=== PATIENT | male | born 1960 | race Caucasian/White ===

== ENCOUNTER → 2019-01-29 | Outpatient (CLI) | payer MEDICARE, OTHER ==
[~2019-01-29] MED LIST: REGADENOSON 0.4 MG/5 ML SYRINGE IV ONE
--- NOTE | 2019-01-29 13:03 | EST ---
EXERCISE STRESS AGE: 58 SEX: M HT: 6'0" WT: 220 PROTOCOL: Lexiscan Cardiolite Study HEART RATE REST: 68 BLOOD PRESSURE REST: 139/89 MAXIMUM HEART RATE ACHIEVED: 96 MAXIMUM BLOOD PRESSURE: 139/89 85% MPHR: 136 100% MPHR: 160 INDICATIONS: Chest pain. CLINICAL INFORMATION: Baseline rhythm sinus mechanism, rate of 68, normal axis and intervals, normal electrocardiogram. Baseline blood pressure 139/89 mmHg. Patient received injection of Lexiscan. Electrocardiograph monitoring revealed rare PVCs, there was no evidence of diagnostic ischemic ST deviation. Cardiolite was injected at the protocol.. CONCLUSION: 1. Nondiagnostic electrocardiograph stress testing with rare PVCs. 2. Nuclear images will be reported separately. MMODL / IJN: [id number] /
--- NOTE | 2019-01-29 15:05 | NM ---
"EXAMINATION TYPE: NM stress lexiscan cardiolite DATE OF EXAM: 01/29/2019 COMPARISON: NONE HISTORY: Chest pain, cardiovascular disease TECHNIQUE: After the intravenous administration of 9.3 mCi Tc 99m Sestamibi - Cardiolite resting SPE CT images acquired 45 minutes post injection. The patient received 0.4mg Lexiscan, 24.6 mCi Tc 99m Sestamibi - Stress images obtained [address] injection FINDINGS: Review of stress and rest SPECT images demonstrates mild decrease uptake of the radiopharmaceutical a t the cardiac apex on stress as compared to rest images. Gated analysis shows normal wall motion wit h an estimated left ventricular ejection fraction of 57 %. 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 This message alert has been sent to Blanca manjarrez MD via the preferences provided by the clinician for the receipt of Radiology Critical Findings. [facility] ID [id number]."
== END | disposition home or self-care (01) ==
LOC: RADNMMAIN 07:40
PROVIDERS: ATTEND Internal Medicine
DX: I25.9 Chronic ischemic heart disease, unspecified (principal)
CPT/HCPCS: 93017; 78452; A9500; J2785

== ENCOUNTER → 2019-01-31 | Outpatient (CLI) | payer MEDICARE, OTHER ==
[2019-01-31 15:11] LABS: HCT 44.9 % (39.0-53.0); HGB 16.3 gm/dL (13.0-17.5); MCH 34.5 pg (25.0-35.0); MCHC 36.3 g/dL (31.0-37.0); MCV 94.9 fL (80.0-100.0); Mean Platelet Volume 7.3; Platelet Count 250 k/uL (150-450); RBC 4.73 m/uL (4.30-5.90); RDW 14.7 % (11.5-15.5)
[2019-01-31 21:41] LABS: African American GFR (CKD) 94.4 (60.0-200.0); Anion Gap 11.6 mmol/L (4.00-12.00); Carbon Dioxide 24.4 mmol/L (21.6-31.8); Potassium 4.3 mmol/L (3.5-5.5)
== END | disposition home or self-care (01) ==
LOC: LABWHC1 14:16
PROVIDERS: ATTEND Internal Medicine Interventional Cardiology
DX: Z01.812 Encounter for preprocedural laboratory examination (principal); R94.39 Abnormal result of other cardiovascular function study
CPT/HCPCS: 36415; 80051; 82565; 84520; 85027

== ENCOUNTER 2019-05-30 20:25 | Emergency (ER) | payer MEDICARE, OTHER ==
[2019-05-30] MEDS ORDERED: NITROGLYCERIN SL TABS 0.4 MG TAB SUBLINGUAL STA (20:49)
--- NOTE | 2019-05-30 20:52 | ED ---
Chest Pain HPI - General Chief Complaint: Chest Pain Stated Complaint: chest pain Time Seen by Provider: 05/30/19 20:39 Source: patient Mode of arrival: ambulatory Limitations: no limitations - History of Present Illness Initial Comments: This 58-year-old male with no prior history of heart disease who does have a history of cervical spine and back disease from previous injuries he states he does have right kidney cancer who presents with complaints of chest pain he states she's had chest pain and really for the last year and a half minute over last week more so in an since last studies had more so subtle in location states he feels like is a pounding in his chest he states he took a muscle relaxer did seem to help and brought down to a 6 or 7/10 he has had shortness of breath with it. No fevers chills no cough or phlegm production no other modifying factors no palpitations MD Complaint: chest pain - Related Data Previous Rx's Medication Instructions Recorded Cyclobenzaprine [Flexeril] 10 mg PO TID #14 tab 05/30/19 Ibuprofen 800 mg PO Q6HR PRN #20 tablet 05/30/19 Nitroglycerin Sl Tabs [Nitrostat] 0.4 mg SUBLINGUAL Q5M PRN #25 tab 05/30/19 Allergies Allergy/AdvReac Type Severity Reaction Status Date / Time No Known Allergies Allergy Verified 05/30/19 20:34 Review of Systems ROS Statement: Those systems with pertinent positive or pertinent negative responses have been documented in the HPI. ROS Other: All systems not noted in ROS Statement are negative. EKG Findings - EKG Results: EKG: interpreted by [place], sinus rhythm (Sinus rhythm rate of 84 KS interval 162 QRS 102 QT since QTC 364/4:30 a single PVC noted some artifact present no acute ST-T wave changes seen) Past Medical History Past Medical History: Coronary Artery Disease (CAD), Cancer, Hypertension Additional Past Medical History / Comment(s): kidney cancer,neck/back pains History of Any Multi-Drug Resistant Organisms: None Reported Past Surgical History: Orthopedic Surgery Additional Past Surgical History / Comment(s): ft femur. lt knee Past Psychological History: No Psychological Hx Reported Smoking Status: Current every day smoker Past Alcohol Use History: None Reported Past Drug Use History: None Reported General Exam - General Exam Comments Initial Comments: This is a well-developed well-nourished awake alert oriented 3 male Limitations: no limitations General appearance: alert, anxious Head exam: Present: atraumatic, normocephalic, normal inspection Eye exam: Present: normal appearance, PERRL, EOMI. Absent: scleral icterus, conjunctival injection, periorbital swelling ENT exam: Present: normal exam, mucous membranes moist Neck exam: Present: normal inspection, full ROM, other (Genitourinary bruits). Absent: tenderness, meningismus, lymphadenopathy Respiratory exam: Present: normal lung sounds bilaterally. Absent: respiratory distress, wheezes, rales, rhonchi, stridor, chest wall tenderness Cardiovascular Exam: Present: regular rate, normal rhythm, normal heart sounds. Absent: systolic murmur, diastolic murmur, rubs, gallop, clicks GI/Abdominal exam: Present: soft, normal bowel sounds. Absent: distended, tenderness, guarding, rebound, rigid Extremities exam: Present: normal inspection, full ROM, normal capillary refill. Absent: tenderness, pedal edema, joint swelling, calf tenderness Back exam: Present: normal inspection Neurological exam: Present: alert, oriented X3, CN II-XII intact Psychiatric exam: Present: normal affect, normal mood Skin exam: Present: warm, dry, intact, normal color. Absent: rash Course Vital Signs 05/30/19 05/30/19 05/30/19 20:31 20:51 21:00 Temperature 98.1 F Pulse Rate 83 84 85 Respiratory 20 Rate Blood Pressure 138/79 147/84 O2 Sat by Pulse 99 95 95 Oximetry 05/30/19 05/30/19 05/30/19 21:30 22:00 22:30 Temperature Pulse Rate 81 73 Respiratory 18 17 Rate Blood Pressure 130/101 124/77 116/71 O2 Sat by Pulse 95 94 L Oximetry - Reevaluation(s) Reevaluation #1: 05/30/19 23:20 Did seem to get relieved some of the pain after nitroglycerin. Procedures - Smoking Cessation Time Spent Discussing Smoking Cessation w/Patient (Minutes): 3 Patient Acknowledges Need for Cessation: Yes Chest Pain MDM - MDM X-ray was negative for acute findings I did discuss the findings with the patient did offer admission and he is refusing at this time. Is unclear whether the pain is musculoskeletal versus cardiac in nature he is a smoker we did discuss smoking cessation he has no nitroglycerin at home he'll be given a prescription for nitroglycerin he did also recommend follow-up with a spinal surgeon as he does have neck pain and evidence of radicular findings with pain going down his arms and at times even his low back going down was toe and the right. He was offered admission he time he comes back he does not want to be admitted this time he's agreed to take the responsibility Disposition Clinical Impression: Atypical chest pain Disposition: HOME SELF-CARE Condition: Good Instructions (If sedation given, give patient instructions): Chest Pain (ED) Additional Instructions: Follow-up with her doctor and with a spine surgeon. Your prescriptions have been sent to your preferred [facility] pharmacy Prescriptions: Cyclobenzaprine [Flexeril] 10 mg PO TID #14 tab Ibuprofen 800 mg PO Q6HR PRN #20 tablet PRN Reason: Pain Nitroglycerin Sl Tabs [Nitrostat] 0.4 mg SUBLINGUAL Q5M PRN #25 tab PRN Reason: Chest Pain Is patient prescribed a controlled substance at d/c from ED?: No Referrals: Blanca Sosa MD [Primary Care Provider] - 1-2 days
[2019-05-30 21:22] LABS: Basophils # (A) 0.1 k/uL (0-0.2); Basophils % (A) 1 %; Eosinophils # (A) 0.1 k/uL (0-0.7); Eosinophils % (A) 1 %; HCT 46.1 % (39.0-53.0); HGB 15.6 gm/dL (13.0-17.5); Lymphocytes # (A) 2.2 k/uL (1.0-4.8); Lymphocytes % (A) 26 %; MCHC 33.9 g/dL (31.0-37.0); MCV 97.5 fL (80.0-100.0); Mean Platelet Volume 8.4; Monocytes # (A) 0.6 k/uL (0-1.0); Monocytes % (A) 7 %; Neutrophils # (A) 5.5 k/uL (1.3-7.7); Neutrophils % (A) 64 %; Platelet Count 217 k/uL (150-450); RBC 4.73 m/uL (4.30-5.90); RDW 12.5 % (11.5-15.5); WBC 8.7 k/uL (3.8-10.6)
--- NOTE | 2019-05-30 21:27 | XR ---
EXAMINATION TYPE: XR chest 2V DATE OF EXAM: 05/30/2019 COMPARISON: 03/11/2015 HISTORY: Short of breath and weakness TECHNIQUE: 2 views FINDINGS: Heart and mediastinum are normal. Lungs are clear. Diaphragm is normal. Bony thorax appears intact. There are chest leads. IMPRESSION: Normal chest. No change.
[2019-05-30 21:31] LABS: ALT 22 U/L (4-49); AST 33 U/L (17-59); African American GFR (CKD) >90 (>60 ml/min/1.73 sqM); Albumin 4.6 g/dL (3.5-5.0); Alkaline Phosphatase 112 U/L (38-126); Anion Gap 12 mmol/L; Blood Urea Nitrogen 19 mg/dL (9-20); Calcium 9.4 mg/dL (8.4-10.2); Carbon Dioxide 22 mmol/L (22-30); Chloride 104 mmol/L (98-107); Creatine Kinase 190 U/L (55-170); Glucose 112 mg/dL (74-99); Magnesium 1.8 mg/dL (1.6-2.3); Non-African American GFR(CKD) 87 (>60 ml/min/1.73 sqM); Potassium 3.9 mmol/L (3.5-5.1); Sodium 138 mmol/L (137-145); Total Bilirubin 0.8 mg/dL (0.2-1.3); Total Protein 7.5 g/dL (6.3-8.2)
[2019-05-30 21:35] LABS: D-Dimer 0.22 mg/L FEU (<0.60); INR 0.9 (<1.2); Partial Thromboplastin Time 22.7 sec (22.0-30.0); Prothrombin Time 9.5 sec (9.0-12.0)
[2019-05-30] MEDS ORDERED: ORPHENADRINE 30 MG/ML 2 ML VIAL IVP STA (23:19)
[2019-05-30] MEDS ORDERED: KETOROLAC 30 MG/ML 1 ML VIAL IVP STA (23:20)
[2019-05-30 23:51] VITALS: BP 116/64; PULSE 80; RESP 18; TEMP 98.2
== END 2019-05-30 23:51 | disposition home or self-care (01) ==
LOC: EC 20:25
DX: R07.89 Other chest pain (principal); R06.02 Shortness of breath; I10 Essential (primary) hypertension; F17.200 Nicotine dependence, unspecified, uncomplicated; Z71.6 Tobacco abuse counseling; Z85.528 Personal history of other malignant neoplasm of kidney
CPT/HCPCS: 36415; 93005; 85379; 83880; 80053; 82550; 83690; 83735; 84484; 85025; 85610; 85730; 71046; 99285; 96374; 96375; J2360; J1885

== ENCOUNTER → 2023-11-11 | Outpatient (CLI) | payer MEDICARE, OTHER ==
[2023-11-11 13:14] LABS: African American GFR (CKD) >90 (>60 ml/min/1.73 sqM); Blood Urea Nitrogen 11 mg/dL (9-20); Non-African American GFR(CKD) >90 (>60 ml/min/1.73 sqM)
--- NOTE | 2023-11-11 21:29 | CT ---
EXAMINATION TYPE: CT abdomen pelvis w con CT DLP: 1168 mGycm, Automated exposure control for dose reduction was used. DATE OF EXAM: 11/11/2023 3:00 PM COMPARISON: None CLINICAL INDICATION:Male, 63 years old with history of C67.9 MALIGNANT NEOPLASM OF BLADDER, UNSPECIFI ED; mass on kidney TECHNIQUE: Axial CT abdomen pelvis w con;Sagittal and coronal reformats were created on a separate w orkstation. Contrast used:100 mL of Isovue 300 with IV Contrast, (none if empty) Oral contrast used: with Oral Contrast (none if empty) FINDINGS: LOWER CHEST: Unremarkable ABDOMEN LIVER: Unremarkable GALLBLADDER AND BILE DUCTS: Unremarkable. PANCREAS: Unremarkable. SPLEEN: Unremarkable. ADRENAL GLANDS: Unremarkable. KIDNEYS AND URETERS: Right renal enhancing mass measuring 54 x 45 mm. PELVIS BLADDER: Unremarkable REPRODUCTIVE: Prostate is enlarged in size measuring 4.9 cm in transverse dimension. ABDOMEN & PELVIS STOMACH AND BOWEL: No evidence of bowel obstruction. r circumferential wall thickening of the sigmoid colon with area of more focal thickening measuring up to 22 mm. Intramural fluid collection not enti rely excluded series 4 image 75.. Scattered colonic diverticulosis. The appendix is normal. PERITONEUM/RETROPERITONEUM: No evidence of pneumoperitoneum or free fluid. VASCULATURE: No evidence of aortic aneurysm. MUSCULOSKELETAL: No acute osseous abnormalities, prior intramedullary juliane and subsequent removal with in the right femur. Severe degeneration changes spine with prior injury to T10 and T11. 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 SOFT TISSUE/ABDOMINAL WALL: Unremarkable IMPRESSION: 1. Right renal enhancing mass measuring 54 x 45 mm. Most compatible with renal cell carcinoma clear cell subtype. No evidence for lymphadenopathy or evidence of metastatic disease at this time. 2. Circumferential wall thickening of the sigmoid colon with more focal area of wall thickening comp atible with colitis. There is a possible intramural fluid collection possibly representing abscess pr esent. Short-term follow-up recommended to exclude neoplasm consider colonoscopy if not recently perf ormed. 1. A Yellow level critical message alert has been initiated for Saurabh Riley MD via the [email or web address] Critical Results System on 11/11/2023 9:25 PM. This message alert has been sent to Erin Riley MD via the preferences provided by the clinician for the receipt of Radiology a l Findings. Message ID [id number].
== END | disposition home or self-care (01) ==
LOC: RADCTMAIN 12:23
PROVIDERS: ATTEND Family Medicine
DX: N28.84 Pyelitis cystica (principal); C67.9 Malignant neoplasm of bladder, unspecified
CPT/HCPCS: 82565; 84520; 74177; 36415; Q9967